=== PATIENT | female | born 1975 | race Caucasian/White ===

== ENCOUNTER 2016-05-06 14:26 | Emergency (ER) | payer OTHER ==
[~2016-05-06] VITALS: Ht 152.4 cm; Wt 95.2 kg
[~2016-05-06 14:26] MED LIST: AMBIEN10 MG PO; BACLOFEN10 MG PO; CEFDINIR300 MG PO; CIPRO500 MG PO; CLEOCIN300 MG PO; CLINDAMYCIN HC300 MG PO; DIFLUCAN150 MG PO; ENDOCET 10-3251 EACH PO; ESKALITH300 M1 PO; FLUTICASONE PRO30 GM TP; IBUPROFEN800 MG PO; LAMICTAL XR200 MG PO; LITHIUM CARBON300 MG; LITHIUM CARBON600 MG PO; LORAZEPAM0.5 MG PO; LORAZEPAM1 MG PO; LYRICA75 MG PO; MORPHINE SULFAT15 MG PO; MOTRIN800 MG PO; NEURONTIN100 MG PO; NORCO 7.5/321 TABLET PO; PEGASYS180 MCG/1 SC; PERCOCET 10/1 TABLE1 PO; PERCOCET 10/1 TABLET PO; PERCOCET 5/31 TABLET PO; PROAIR HFA8.5 GM PO; PROMACTA25 MG PO; QUETIAPINE FUM300 MG; QUETIAPINE FUM300 MG PO; QUETIAPINE FUMA50 MG PO; RIBAPAK PO; RISPERDAL2 MG PO; ROPINIROLE HCL1 MG PO; SEROQUEL200 MG PO; SEROQUEL300 MG PO; SEROQUEL400 MG PO; SEROquel PO; SOMA350 MG PO; Silvadene,SSD,Therma TP; TRAMADOL HCL50 MG PO; ULTRAM50 MG PO; VENTOLIN HFA18 GM IH; VOLTAREN75 MG PO; Vibramycin, Doryx PO; ZOLPIDEM TARTRA10 MG PO; ZYVOX600 MG PO
[2016-05-06 15:26] LABS: HEMATOCRIT 38.4 % (36.0-46.0); MCH 30.7 PG (29.0-34.0); MCHC 35.4 G/DL (30.0-36.0); MCV 86.7 FL (83-99); RBC DIS.WIDTH-CV 15.1 % (11.8-14.6); RBC DIS.WIDTH-SD 47.3 % (39-53); RED BLOOD COUNT 4.43 M/uL (3.80-5.20); WHITE BLOOD COUNT 4.6 K/uL (4.1-10.2)
[2016-05-06 15:34] LABS: CHLORIDE 111 mEq/L (99-109); POTASSIUM 4.1 mEq/L (3.7-5.4); SODIUM 141 mEq/L (136-147)
[2016-05-06 15:37] LABS: GLUCOSE 120 mg/dL (70-99)
[2016-05-06 15:38] LABS: ANION GAP 8 MEQ/L (2-14); TOTAL BILIRUBIN 2.2 mg/dL (0.0-1.0)
[2016-05-06 15:40] LABS: ALKALINE PHOSPHATASE 89 IU/L (3-129); GFR ESTIMATE (CALCULATED) > 59 mL/min/
[2016-05-06 15:41] LABS: UREA NITROGEN (BUN) 9 mg/dL (9-23)
[2016-05-06 15:42] LABS: DIRECT BILIRUBIN 0.9 mg/dL (0.0-0.3)
[2016-05-06 15:50] LABS: QUANTITATIVE HCG < 4.0 MIU/ML
[2016-05-06 15:51] LABS: MEAN PLAT.VOLUME 10.4 uM^3 (9.5-12.4); PLATELET COUNT 41 K/uL (156-360)
[2016-05-06 17:10] LABS: ADD MIUA? YES; BILIRUBIN NEGATIVE; BLOOD NEGATIVE; COLOR AMBER ((YELLOW)); GLUCOSE (STRIP) NEGATIVE; KETONES NEGATIVE; LEUKOCYTES NEGATIVE; NITRITE NEGATIVE; PROTEIN (STRIP) NEGATIVE
[2016-05-06 17:20] LABS: BACTERIA RARE /HPF; EPITHELIAL CELLS 1+ /HPF; MUCUS TRACE /LPF; RED BLOOD CELLS NONE SEEN /HPF (0-5); UCUL ADDED? NO; WHITE BLOOD CELLS 0-5 /HPF (0-5)
[2016-05-06 17:39] LABS: LIPASE 64 U/L (1.0-51.0)
[2016-05-06] MEDS ORDERED: ZOFRAN ODT4 MG PO (20:42)
[2016-05-06 21:51] VITALS: BP 136/79
== END 2016-05-06 22:12 | disposition home or self-care (01) ==
LOC: EME 14:26
DX: R10.31 Right lower quadrant pain (principal); R11.2 Nausea with vomiting, unspecified; B19.20 Unspecified viral hepatitis C without hepatic coma; F17.200 Nicotine dependence, unspecified, uncomplicated
CPT/HCPCS: 74177; 80053; 81003; 82248; 83690; 84702; 85027; 99281; 99285; J1885; J2270; J2405; J7030

== ENCOUNTER 2016-09-16 19:32 | Emergency (ER) | payer OTHER ==
[~2016-09-16] VITALS: Ht 152.4 cm; Wt 95.1 kg
[~2016-09-16 19:32] MED LIST changes: +ZOFRAN ODT4 MG PO
[2016-09-16 19:35] VITALS: BP 115/68
[2016-09-16 19:50] LABS: ADD MIUA? YES; BILIRUBIN NEGATIVE; BLOOD SMALL; COLOR YELLOW ((YELLOW)); GLUCOSE (STRIP) NEGATIVE; KETONES NEGATIVE; LEUKOCYTES LARGE; NITRITE NEGATIVE; PROTEIN (STRIP) 30; SPECIFIC GRAVITY 1.012 (1.000-1.030)
[2016-09-16 20:17] LABS: BACTERIA RARE /HPF; EPITHELIAL CELLS 1+ /HPF; MUCUS TRACE /LPF; UCUL ADDED? NO; WHITE BLOOD CELLS 40-50 /HPF (0-5)
[2016-09-17] MEDS ORDERED: MOTRIN600 MG PO (01:13)
== END 2016-09-16 21:09 | disposition left against medical advice (07) ==
LOC: EME 19:32
DX: R10.9 Unspecified abdominal pain (principal); Z53.21 Procedure and treatment not carried out due to patient leaving prior to being seen by health care provider
CPT/HCPCS: 80053; 81003; 84702; 85027

== ENCOUNTER 2016-09-16 21:24 | Emergency (ER) | payer OTHER ==
[~2016-09-16] VITALS: Ht 152.4 cm; Wt 95.1 kg
[2016-09-16 21:59] LABS: HEMATOCRIT 38.1 % (36.0-46.0); MCH 31.2 PG (29.0-34.0); MCHC 33.6 G/DL (30.0-36.0); MCV 92.9 FL (83-99); RBC DIS.WIDTH-CV 14.1 % (11.8-14.6); RBC DIS.WIDTH-SD 47.8 % (39-53); WHITE BLOOD COUNT 2.8 K/uL (4.1-10.2)
[2016-09-16 22:11] LABS: CHLORIDE 108 mEq/L (99-109); POTASSIUM 3.7 mEq/L (3.7-5.4); SODIUM 137 mEq/L (136-147)
[2016-09-16 22:13] LABS: GLUCOSE 141 mg/dL (70-99)
[2016-09-16 22:14] LABS: ANION GAP 6 MEQ/L (2-14)
[2016-09-16 22:15] LABS: TOTAL BILIRUBIN 1.6 mg/dL (0.0-1.0)
[2016-09-16 22:16] LABS: ALKALINE PHOSPHATASE 92 IU/L (3-129)
[2016-09-16 22:17] LABS: GFR ESTIMATE (CALCULATED) > 59 mL/min/
[2016-09-16 22:18] LABS: UREA NITROGEN (BUN) 5 mg/dL (9-23)
[2016-09-16 22:23] LABS: ADD MIUA? YES; BILIRUBIN NEGATIVE; BLOOD MODERATE; COLOR YELLOW ((YELLOW)); GLUCOSE (STRIP) NEGATIVE; KETONES NEGATIVE; LEUKOCYTES LARGE; NITRITE NEGATIVE; PROTEIN (STRIP) NEGATIVE; SPECIFIC GRAVITY 1.006 (1.000-1.030)
[2016-09-16 22:25] LABS: QUANTITATIVE HCG < 4.0 MIU/ML
[2016-09-16 22:45] LABS: BACTERIA RARE /HPF; EPITHELIAL CELLS 1+ /HPF; MUCUS TRACE /LPF; RED BLOOD CELLS 15-20 /HPF (0-5); UCUL ADDED? YES; WHITE BLOOD CELLS TNTC /HPF (0-5)
[2016-09-16 23:16] LABS: IMM.PLATELET FRACTION 3.6 (1-7); PLATELET COUNT 39 K/uL (156-360)
[2016-09-16 23:18] LABS: PLAT.SUFFICIENCY VERY DECREASED
[2016-09-17] MEDS ORDERED: MOTRIN600 MG PO (01:13)
[2016-09-17 02:03] VITALS: BP 111/61
== END 2016-09-17 02:03 | disposition home or self-care (01) ==
LOC: EME 21:24
DX: R10.9 Unspecified abdominal pain (principal); S39.012A Strain of muscle, fascia and tendon of lower back, initial encounter; R31.9 Hematuria, unspecified; X50.1XXA Overexertion from prolonged static or awkward postures, initial encounter; Y93.89 Activity, other specified; Z87.442 Personal history of urinary calculi; F17.200 Nicotine dependence, unspecified, uncomplicated; B19.20 Unspecified viral hepatitis C without hepatic coma
CPT/HCPCS: 74176; 80053; 81003; 84702; 85027; 87086 GA; 99281; 99284; J1885

== ENCOUNTER 2017-03-19 18:58 | Emergency (ER) | payer OTHER ==
[~2017-03-19] VITALS: Ht 152.4 cm; Wt 103.4 kg
[~2017-03-19 18:58] MED LIST changes: +GAS RELIEF 8080 MG PO; +MOTRIN600 MG PO
[2017-03-19 22:43] LABS: HEMATOCRIT 33.7 % (36.0-46.0); HEMOGLOBIN 11.5 G/DL (11.9-15.5); MCH 30.3 PG (29.0-34.0); MCHC 34.1 G/DL (30.0-36.0); MCV 88.7 FL (83-99); RBC DIS.WIDTH-CV 15.9 % (11.8-14.6); RBC DIS.WIDTH-SD 51.3 % (39-53); WHITE BLOOD COUNT 3.4 K/uL (4.1-10.2)
[2017-03-19 22:56] LABS: CHLORIDE 108 mEq/L (99-109); POTASSIUM 4.1 mEq/L (3.7-5.4); SODIUM 137 mEq/L (136-147)
[2017-03-19 22:58] LABS: GLUCOSE 107 mg/dL (70-99)
[2017-03-19 23:01] LABS: CREATININE 0.6 mg/dL (0.6-1.3); GFR ESTIMATE (CALCULATED) > 59 mL/min/
[2017-03-19 23:02] LABS: UREA NITROGEN (BUN) 8 mg/dL (9-23)
[2017-03-19 23:04] LABS: LIPASE 60 U/L (1.0-51.0)
[2017-03-19 23:05] LABS: APPEARANCE CLOUDY ((CLEAR)); BILIRUBIN NEGATIVE; BLOOD LARGE; COLOR AMBER ((YELLOW)); GLUCOSE (STRIP) NEGATIVE; KETONES NEGATIVE; LEUKOCYTES MODERATE; NITRITE NEGATIVE; PROTEIN (STRIP) 30; SPECIFIC GRAVITY 1.026 (1.000-1.030)
[2017-03-19 23:29] LABS: BACTERIA 1+ /HPF; EPITHELIAL CELLS 1+ /HPF; MUCUS NONE SEEN /LPF; RED BLOOD CELLS TNTC /HPF (0-5); UCUL ADDED? YES; WHITE BLOOD CELLS 15-20 /HPF (0-5)
[2017-03-19 23:43] VITALS: BP 110/67
[2017-03-20 00:05] LABS: IMM.PLATELET FRACTION 2.3 (1-7); PLAT.SUFFICIENCY VERY DECREASED; PLATELET COUNT 35 K/uL (156-360)
== END 2017-03-19 23:44 | disposition home or self-care (01) ==
LOC: EME 18:58
PROVIDERS: Nurse Practitioner Family
DX: S20.211A Contusion of right front wall of thorax, initial encounter (principal); W17.89XA Other fall from one level to another, initial encounter; J45.909 Unspecified asthma, uncomplicated; F17.200 Nicotine dependence, unspecified, uncomplicated; F32.9 Major depressive disorder, single episode, unspecified; F41.9 Anxiety disorder, unspecified; K21.9 Gastro-esophageal reflux disease without esophagitis; B19.20 Unspecified viral hepatitis C without hepatic coma; K74.60 Unspecified cirrhosis of liver
CPT/HCPCS: 71101; 80048; 81003; 83690; 85027; 87086; 99281; 99284

== ENCOUNTER 2017-05-21 16:21 | Inpatient (IN) | payer OTHER ==
[~2017-05-21] VITALS: Ht 152.4 cm; Wt 103.8 kg
[2017-05-21 17:49] LABS: HEMATOCRIT 33.2 % (36.0-46.0); HEMOGLOBIN 11.2 G/DL (11.9-15.5); MCH 29.9 PG (29.0-34.0); MCHC 33.7 G/DL (30.0-36.0); MCV 88.5 FL (83-99); RBC DIS.WIDTH-CV 16.6 % (11.8-14.6); RBC DIS.WIDTH-SD 53.1 % (39-53); RED BLOOD COUNT 3.75 M/uL (3.80-5.20); WHITE BLOOD COUNT 4.8 K/uL (4.1-10.2)
[2017-05-21 18:14] LABS: ALBUMIN 2.9 g/dL (3.2-4.8); CHLORIDE 100 mEq/L (99-109); POTASSIUM 4.1 mEq/L (3.7-5.4); SODIUM 131 mEq/L (136-147)
[2017-05-21 18:17] LABS: GLUCOSE 150 mg/dL (70-99); TOTAL PROTEIN 5.8 g/dL (6.4-8.3)
[2017-05-21 18:18] LABS: TOTAL BILIRUBIN 3.7 mg/dL (0.0-1.0)
[2017-05-21 18:20] LABS: ALKALINE PHOSPHATASE 107 IU/L (3-129); CREATININE 1.1 mg/dL (0.6-1.3); GFR ESTIMATE (CALCULATED) 58 mL/min/; SERUM ETHYL ALCOHOL < 10 mg/dL
[2017-05-21 18:21] LABS: UREA NITROGEN (BUN) 18 mg/dL (9-23)
[2017-05-21 18:22] LABS: AST (GOT) 68 IU/L (2-34)
[2017-05-21 18:23] LABS: ALT (GPT) 34 IU/L (3-49); CREATINE KINASE 537 IU/L (1-294)
[2017-05-21 18:29] LABS: TROP-I INTERPRETATION NEGATIVE; TROPONIN-I 0.08 ng/mL (0.0-0.30)
[2017-05-21 18:43] LABS: IMM.PLATELET FRACTION 5.7 (1-7); PLAT.SUFFICIENCY VERY DECREASED; PLATELET COUNT 20 K/uL (156-360)
[2017-05-21 19:10] LABS: BASE EXCESS -5.1 mEq/L (-3 to +3); BICARBONATE 21.6 mEq/L (22-26); CARBOXY HGB 3.6 % (0-5); COMMENTS - BLOOD GASES C+; DEVICE NC; METHEMOGLOBIN 0.9 % (0-1.5); O2 FLOW 6 L/MIN; PCO2 46 mm Hg (35-45); PO2 62 mm Hg (80-100); SITE RBRACHIAL; TOTAL RESP RATE 20 resp/min
[2017-05-21 19:11] LABS: pH 7.28 (7.35-7.45)
[2017-05-21 19:15] LABS: APPEARANCE CLOUDY ((CLEAR)); BILIRUBIN NEGATIVE; BLOOD SMALL; COLOR AMBER ((YELLOW)); GLUCOSE (STRIP) 50; KETONES NEGATIVE; LEUKOCYTES SMALL; NITRITE NEGATIVE; PROTEIN (STRIP) 100; SPECIFIC GRAVITY 1.012 (1.000-1.030)
[2017-05-21 19:32] LABS: AMPHETAMINE NEGATIVE (500 ng/mL); BARBITURATES NEGATIVE (200 ng/mL); BENZODIAZEPINES NEGATIVE (150 ng/mL); BUPRENORPHINE NEGATIVE (10 ng/mL); COCAINE PRESUMPTIVE POSITIVE (150 ng/mL); METHADONE NEGATIVE (200 ng/mL); METHAMPHETAMINE NEGATIVE (500 ng/mL); OPIATES (MORPHINE) PRESUMPTIVE POSITIVE (100 ng/mL); OXYCODONE NEGATIVE (100 ng/mL); PHENCYCLIDINE NEGATIVE (25 ng/mL); PROPOXYPHENE NEGATIVE (300 ng/mL); THC CANNABINOIDS NEGATIVE (50 ng/mL); TRICYCLIC ANTIDEPRESSANTS PRESUMPTIVE POSITIVE (300 ng/mL)
[2017-05-21 19:35] LABS: BACTERIA RARE /HPF; EPITHELIAL CELLS 3+ /HPF; FINE GRANULAR CASTS 0-5 /LPF; MUCUS NONE SEEN /LPF; RED BLOOD CELLS 0-5 /HPF (0-5); UCUL ADDED? NO; WHITE BLOOD CELLS 0-5 /HPF (0-5)
[2017-05-21 19:36] LABS: AMORPHOUS URATES CRYSTALS 1+; HYALINE CASTS 0-5 /LPF
[2017-05-21] MEDS ORDERED: ZOLPIDEM TARTRAT5 MG PO (20:52)
[2017-05-21] MEDS ORDERED: FLUOXETINE HCL10 MG PO (21:02)
[2017-05-21] MEDS ORDERED: QUETIAPINE FUM400 MG PO (21:02)
[2017-05-21] MEDS ORDERED: FLUOXETINE HCL40 MG PO (21:03)
[2017-05-21] MEDS ORDERED: PROAIR HFA8.5 GM IH (21:06)
[2017-05-22 01:00] VITALS: BP 105/59
[2017-05-22 04:00] VITALS: BP 100/63
[2017-05-22 05:43] LABS: HEMATOCRIT 31.2 % (36.0-46.0); HEMOGLOBIN 10.5 G/DL (11.9-15.5); INTER. NORMALIZED RATIO 1.6; MCH 29.8 PG (29.0-34.0); MCHC 33.7 G/DL (30.0-36.0); MCV 88.6 FL (83-99); RBC DIS.WIDTH-CV 16.9 % (11.8-14.6); RBC DIS.WIDTH-SD 53.1 % (39-53); RED BLOOD COUNT 3.52 M/uL (3.80-5.20); WHITE BLOOD COUNT 5.8 K/uL (4.1-10.2)
[2017-05-22 05:46] LABS: PTT 33.8 SEC (25-37)
[2017-05-22 06:02] LABS: CHLORIDE 105 MEQ/L (99-109); CREATININE 0.7 MG/DL (0.6-1.3); GFR ESTIMATE (CALCULATED) > 59 mL/min/; SODIUM 136 MEQ/L (136-147); UREA NITROGEN (BUN) 18 mg/dL (9-23)
[2017-05-22 06:04] LABS: GLUCOSE 101 mg/dL (70-99)
[2017-05-22 06:22] LABS: IMM.PLATELET FRACTION 3.4 (1-7); PLATELET COUNT 26 K/uL (156-360)
[2017-05-22 08:00] VITALS: BP 121/62
[2017-05-22 08:28] LABS: THYROTROPIN (TSH) 0.61 MIU/L (0.4-5.5)
[2017-05-22 12:00] VITALS: BP 125/73
[2017-05-22 16:00] VITALS: BP 121/74
[2017-05-22 20:00] VITALS: BP 132/72
[2017-05-23] VITALS (14 sets, daily range): BP systolic 109–128; BP diastolic 54–81
[2017-05-23 05:34] LABS: HEMATOCRIT 31.8 % (36.0-46.0); HEMOGLOBIN 10.7 G/DL (11.9-15.5); MCH 30.1 PG (29.0-34.0); MCHC 33.6 G/DL (30.0-36.0); MCV 89.3 FL (83-99); NRBC (%) 0.2 /100 WBC (0-0); RBC DIS.WIDTH-CV 17.7 % (11.8-14.6); RBC DIS.WIDTH-SD 55.3 % (39-53); RED BLOOD COUNT 3.56 M/uL (3.80-5.20); WHITE BLOOD COUNT 10.2 K/uL (4.1-10.2)
[2017-05-23 05:59] LABS: ALBUMIN 2.4 G/DL (3.2-4.8); ALKALINE PHOSPHATASE 74 IU/L (3-129); ALT (GPT) 25 IU/L (3-49); AST (GOT) 50 IU/L (2-34); CHLORIDE 107 MEQ/L (99-109); CREATININE 0.6 MG/DL (0.6-1.3); GFR ESTIMATE (CALCULATED) > 59 mL/min/; GLUCOSE 122 mg/dL (70-99); POTASSIUM 3.5 MEQ/L (3.7-5.4); SODIUM 137 MEQ/L (136-147); TOTAL BILIRUBIN 3.6 MG/DL (0.0-1.0); TOTAL PROTEIN 5.1 G/DL (6.4-8.3); UREA NITROGEN (BUN) 12 mg/dL (9-23)
[2017-05-23 06:03] LABS: IMM.PLATELET FRACTION 1.8 (1-7); PLAT.SUFFICIENCY VERY DECREASED; PLATELET COUNT 38 K/uL (156-360)
[2017-05-23 08:21] LABS: FOLIC ACID (FOLATE) 9.1 NG/ML (5.0-22.0)
[2017-05-23 10:03] LABS: BASE EXCESS 0.4 mEq/L (-3 to +3); BICARBONATE 24.6 mEq/L (22-26); CARBOXY HGB 2.8 % (0-5); COMMENTS - BLOOD GASES A+C+; DEVICE HHFNC; FI02 70 %; METHEMOGLOBIN 1.5 % (0-1.5); O2 FLOW 50 L/MIN; PCO2 37 mm Hg (35-45); PO2 57 mm Hg (80-100); SITE RR; TOTAL RESP RATE 40 resp/min; pH 7.43 (7.35-7.45)
[2017-05-24] VITALS (9 sets, daily range): BP systolic 109–133; BP diastolic 56–89
[2017-05-24 05:29] LABS: CHLORIDE 102 MEQ/L (99-109); CREATININE 0.6 MG/DL (0.6-1.3); GFR ESTIMATE (CALCULATED) > 59 mL/min/; GLUCOSE 169 mg/dL (70-99); POTASSIUM 3.1 MEQ/L (3.7-5.4); SODIUM 137 MEQ/L (136-147); UREA NITROGEN (BUN) 13 mg/dL (9-23)
[2017-05-24 05:31] LABS: HEMATOCRIT 31.8 % (36.0-46.0); HEMOGLOBIN 10.5 G/DL (11.9-15.5); MCH 29.3 PG (29.0-34.0); MCV 88.8 FL (83-99); RBC DIS.WIDTH-CV 17.5 % (11.8-14.6); RBC DIS.WIDTH-SD 54.9 % (39-53); RED BLOOD COUNT 3.58 M/uL (3.80-5.20); WHITE BLOOD COUNT 7.2 K/uL (4.1-10.2)
[2017-05-24 05:40] LABS: IMM.PLATELET FRACTION 2.5 (1-7)
[2017-05-24 05:44] LABS: PLATELET COUNT 26 K/uL (156-360)
[2017-05-25] VITALS (8 sets, daily range): BP systolic 112–130; BP diastolic 59–85
[2017-05-25 05:58] LABS: HEMATOCRIT 32.1 % (36.0-46.0); HEMOGLOBIN 10.5 G/DL (11.9-15.5); MCH 29.6 PG (29.0-34.0); MCHC 32.7 G/DL (30.0-36.0); MCV 90.4 FL (83-99); RBC DIS.WIDTH-CV 17.3 % (11.8-14.6); RBC DIS.WIDTH-SD 56.4 % (39-53); RED BLOOD COUNT 3.55 M/uL (3.80-5.20); WHITE BLOOD COUNT 5.3 K/uL (4.1-10.2)
[2017-05-25 06:22] LABS: CHLORIDE 103 MEQ/L (99-109); CREATININE 0.6 MG/DL (0.6-1.3); GFR ESTIMATE (CALCULATED) > 59 mL/min/; GLUCOSE 167 mg/dL (70-99); SODIUM 139 MEQ/L (136-147); UREA NITROGEN (BUN) 16 mg/dL (9-23)
[2017-05-25 06:42] LABS: IMM.PLATELET FRACTION 2.1 (1-7); PLATELET COUNT 31 K/uL (156-360)
[2017-05-26] VITALS (9 sets, daily range): BP systolic 113–138; BP diastolic 60–82
[2017-05-26 05:04] LABS: CHLORIDE 101 mEq/L (99-109); POTASSIUM 3.8 mEq/L (3.7-5.4); SODIUM 136 mEq/L (136-147)
[2017-05-26 05:05] LABS: GLUCOSE 175 mg/dL (70-99)
[2017-05-26 05:09] LABS: CREATININE 0.7 mg/dL (0.6-1.3); GFR ESTIMATE (CALCULATED) > 59 mL/min/
[2017-05-26 05:10] LABS: UREA NITROGEN (BUN) 19 mg/dL (9-23)
[2017-05-27 03:00] VITALS: BP 106/56
[2017-05-27 06:22] LABS: ALBUMIN 2.3 G/DL (3.2-4.8); ALKALINE PHOSPHATASE 82 IU/L (3-129); AST (GOT) 55 IU/L (2-34); CHLORIDE 99 MEQ/L (99-109); CREATININE 0.7 MG/DL (0.6-1.3); GFR ESTIMATE (CALCULATED) > 59 mL/min/; GLUCOSE 186 mg/dL (70-99); POTASSIUM 3.9 MEQ/L (3.7-5.4); SODIUM 134 MEQ/L (136-147); UREA NITROGEN (BUN) 24 mg/dL (9-23)
[2017-05-27 06:24] LABS: ALT (GPT) 57 IU/L (3-49); TOTAL BILIRUBIN 1.8 MG/DL (0.0-1.0)
[2017-05-27 08:51] VITALS: BP 137/68
[2017-05-27 12:16] VITALS: BP 96/52
[2017-05-27 15:55] VITALS: BP 114/61
[2017-05-27 20:30] VITALS: BP 116/62
[2017-05-28 00:06] VITALS: BP 139/63
[2017-05-28 04:31] VITALS: BP 108/57
[2017-05-28 06:27] LABS: HEMATOCRIT 32.7 % (36.0-46.0); HEMOGLOBIN 10.5 G/DL (11.9-15.5); MCH 28.8 PG (29.0-34.0); MCHC 32.1 G/DL (30.0-36.0); MCV 89.8 FL (83-99); RBC DIS.WIDTH-CV 16.4 % (11.8-14.6); RBC DIS.WIDTH-SD 53.3 % (39-53); RED BLOOD COUNT 3.64 M/uL (3.80-5.20); WHITE BLOOD COUNT 5.2 K/uL (4.1-10.2)
[2017-05-28 06:54] LABS: PLAT.SUFFICIENCY DECREASED; PLATELET COUNT 35 K/uL (156-360)
[2017-05-28 08:05] VITALS: BP 127/72
[2017-05-28 14:18] VITALS: BP 108/65
[2017-05-28 20:10] VITALS: BP 114/60
[2017-05-28 23:07] VITALS: BP 115/64
[2017-05-29 04:08] VITALS: BP 97/55
[2017-05-29 06:09] LABS: ALBUMIN 2.1 G/DL (3.2-4.8); ALKALINE PHOSPHATASE 81 IU/L (3-129); ALT (GPT) 52 IU/L (3-49); AST (GOT) 36 IU/L (2-34); CHLORIDE 100 MEQ/L (99-109); CREATININE 0.6 MG/DL (0.6-1.3); GFR ESTIMATE (CALCULATED) > 59 mL/min/; GLUCOSE 241 mg/dL (70-99); POTASSIUM 3.7 MEQ/L (3.7-5.4); SODIUM 136 MEQ/L (136-147); TOTAL BILIRUBIN 1.8 MG/DL (0.0-1.0); TOTAL PROTEIN 4.7 G/DL (6.4-8.3); UREA NITROGEN (BUN) 16 mg/dL (9-23)
[2017-05-29 09:35] VITALS: BP 94/52
[2017-05-29 12:52] VITALS: BP 119/55
[2017-05-29 17:00] VITALS: BP 118/61
[2017-05-29 21:35] VITALS: BP 101/53
[2017-05-30 00:10] VITALS: BP 118/58
[2017-05-30 04:45] VITALS: BP 114/55
[2017-05-30 04:50] LABS: BASOPHIL (%) 0 % (0-1); EOSINOPHIL (%) 1.2 % (0-5); EOSINOPHIL COUNT 0.1 K/uL (0-0.3); HEMATOCRIT 31.4 % (36.0-46.0); HEMOGLOBIN 10.2 G/DL (11.9-15.5); IMMATURE GRANULOCYTE (%) 1.2 % (0.0-0.7); LYMPHOCYTE (%) 15.8 % (15-42); LYMPHOCYTE COUNT 0.7 K/uL (1.0-2.8); MCH 29.1 PG (29.0-34.0); MCHC 32.5 G/DL (30.0-36.0); MCV 89.5 FL (83-99); MONOCYTE (%) 7.3 % (3-12); MONOCYTE COUNT 0.3 K/uL (0-0.8); NEUTROPHIL (%) 74.5 % (45-76); NEUTROPHIL COUNT 3.1 K/uL (1.8-6.4); RBC DIS.WIDTH-CV 16.4 % (11.8-14.6); RED BLOOD COUNT 3.51 M/uL (3.80-5.20); WHITE BLOOD COUNT 4.1 K/uL (4.1-10.2)
[2017-05-30 05:26] LABS: CHLORIDE 101 MEQ/L (99-109); CREATININE 0.5 MG/DL (0.6-1.3); GFR ESTIMATE (CALCULATED) > 59 mL/min/; GLUCOSE 170 mg/dL (70-99); POTASSIUM 3.2 MEQ/L (3.7-5.4); SODIUM 139 MEQ/L (136-147); UREA NITROGEN (BUN) 12 mg/dL (9-23)
[2017-05-30 05:36] LABS: PLATELET CLUMPS PRESENT - PLATELET COUNTS APPEARS DECREASED
[2017-05-30 05:41] LABS: PLATELET COUNT UNABLE TO REPORT K/uL (156-360)
[2017-05-30 08:11] VITALS: BP 103/55
[2017-05-30 11:26] VITALS: BP 107/64
== END 2017-05-30 15:53 | disposition left against medical advice (07) | DRG 441 ==
LOC: EME 16:21 → EDOF 21:53 → 4EAST 21:53 → 4WEST 21:53 → ENRESERV 21:56 → 4WEST 05-22 00:13 → CANRESERV 05-22 19:25 → ENRESERV 05-22 19:25 → 4WEST 05-23 18:10 → CANRESERV 05-26 15:08 → ENRESERV 05-26 15:08 → 4EAST 05-26 21:41 → ENRESERV 05-30 11:18 → 4EAST 05-30 15:53
PROVIDERS: Emergency Medicine; Hospitalist; Internal Medicine; Internal Medicine Critical Care Medicine; Internal Medicine Hematology & Oncology; Internal Medicine Pulmonary Disease
DX: K72.00 Acute and subacute hepatic failure without coma (principal); J96.01 Acute respiratory failure with hypoxia; J69.0 Pneumonitis due to inhalation of food and vomit; K74.60 Unspecified cirrhosis of liver; K70.10 Alcoholic hepatitis without ascites; J44.0 Chronic obstructive pulmonary disease with (acute) lower respiratory infection; W19.XXXA Unspecified fall, initial encounter; Y92.009 Unspecified place in unspecified non-institutional (private) residence as the place of occurrence of the external cause; F17.210 Nicotine dependence, cigarettes, uncomplicated; E87.1 Hypo-osmolality and hyponatremia; R73.9 Hyperglycemia, unspecified; E66.9 Obesity, unspecified; E63.9 Nutritional deficiency, unspecified; F14.90 Cocaine use, unspecified, uncomplicated; D69.59 Other secondary thrombocytopenia; D68.59 Other primary thrombophilia; J96.02 Acute respiratory failure with hypercapnia; B18.2 Chronic viral hepatitis C; F60.9 Personality disorder, unspecified; K76.6 Portal hypertension; F32.9 Major depressive disorder, single episode, unspecified; F41.9 Anxiety disorder, unspecified; Z68.41 Body mass index [BMI] 40.0-44.9, adult; D73.1 Hypersplenism; K21.9 Gastro-esophageal reflux disease without esophagitis; T40.601A Poisoning by unspecified narcotics, accidental (unintentional), initial encounter; G47.00 Insomnia, unspecified; K64.9 Unspecified hemorrhoids; Z90.49 Acquired absence of other specified parts of digestive tract; Z91.19 Patient's noncompliance with other medical treatment and regimen; Z83.3 Family history of diabetes mellitus; Z82.49 Family history of ischemic heart disease and other diseases of the circulatory system
CPT/HCPCS: 36600; 70450; 71045; 71046; 71260; 76705; 80048; 80053; 80178; 81003; 82140; 82550; 82607; 82746; 82803; 82945; 82948; 83605; 83986 90; 84145 90; 84157; 84443; 84484; 84999; 85025; 85027; 85610; 85730; 87040; 87070; 87077; 87086; 87186; 87205; 87449; 87502; 87641; 89051; 93005; 93306; 94010; 94640; 94640 76; 94760; 94799; 99202; 99281; 99285; G0480; J0456; J0692; J0696; J1940; J2310; J2405; J2930; J3370; J7030; J7512

== ENCOUNTER → 2017-06-18 | Outpatient (CLI) | payer OTHER ==
[~2017-06-18] MED LIST changes: +FLUOXETINE HCL10 MG PO; +FLUOXETINE HCL40 MG PO; +PROAIR HFA8.5 GM IH; +QUETIAPINE FUM400 MG PO; +ZOLPIDEM TARTRAT5 MG PO
== END | disposition home or self-care (01) ==
LOC: RAD 12:53
DX: R18.8 Other ascites (principal)
CPT/HCPCS: 76705

== ENCOUNTER → 2017-06-20 | Outpatient (CLI) | payer OTHER | END | disposition home or self-care (01) | LOC: RAD 12:54 | DX: R18.8 Other ascites (principal) | CPT/HCPCS: 76705 ==

== ENCOUNTER 2017-06-21 17:45 | Emergency (ER) | payer OTHER ==
[~2017-06-21] VITALS: Ht 152.4 cm; Wt 121.5 kg
[2017-06-21 19:48] LABS: HEMATOCRIT 37.3 % (36.0-46.0); MCH 30.1 PG (29.0-34.0); MCHC 32.2 G/DL (30.0-36.0); RBC DIS.WIDTH-CV 16.5 % (11.8-14.6); RBC DIS.WIDTH-SD 56.9 % (39-53); RED BLOOD COUNT 3.99 M/uL (3.80-5.20)
[2017-06-21 19:57] LABS: ALBUMIN 2.6 g/dL (3.2-4.8); CHLORIDE 111 mEq/L (99-109); POTASSIUM 3.7 mEq/L (3.7-5.4); SODIUM 141 mEq/L (136-147)
[2017-06-21 19:59] LABS: GLUCOSE 160 mg/dL (70-99); TOTAL PROTEIN 6.2 g/dL (6.4-8.3)
[2017-06-21 20:01] LABS: TOTAL BILIRUBIN 1.9 mg/dL (0.0-1.0)
[2017-06-21 20:03] LABS: ALKALINE PHOSPHATASE 134 IU/L (3-129); CREATININE 0.7 mg/dL (0.6-1.3); GFR ESTIMATE (CALCULATED) > 59 mL/min/
[2017-06-21 20:04] LABS: UREA NITROGEN (BUN) 5 mg/dL (9-23)
[2017-06-21 20:05] LABS: AST (GOT) 33 IU/L (2-34)
[2017-06-21 20:06] LABS: ALT (GPT) 22 IU/L (3-49); LIPASE 17 U/L (1.0-51.0)
[2017-06-21 20:13] LABS: TROP-I INTERPRETATION NEGATIVE; TROPONIN-I < 0.01 ng/mL (0.0-0.30)
[2017-06-21 20:24] LABS: HEMATOLOGY COMMENT 1 SN; PLAT.SUFFICIENCY VERY DECREASED
[2017-06-21 21:03] LABS: IMM.PLATELET FRACTION 1.6 (1-7); MCV 93.5 FL (83-99); PLATELET COUNT 37 K/uL (156-360)
[2017-06-22 00:21] VITALS: BP 153/83
== END 2017-06-22 00:22 | disposition home or self-care (01) ==
LOC: EME 17:45
PROVIDERS: Emergency Medicine
DX: R06.02 Shortness of breath (principal); K74.60 Unspecified cirrhosis of liver; R18.8 Other ascites; R60.0 Localized edema; R63.5 Abnormal weight gain; J45.909 Unspecified asthma, uncomplicated; Z87.01 Personal history of pneumonia (recurrent); Z90.49 Acquired absence of other specified parts of digestive tract; F17.200 Nicotine dependence, unspecified, uncomplicated; Z68.43 Body mass index [BMI] 50.0-59.9, adult
CPT/HCPCS: 71046; 71275; 80048; 80076; 83690; 84484; 85027; 85379; 93005; 99281; 99285

== ENCOUNTER 2017-07-05 15:59 | Inpatient (IN) | payer OTHER ==
[~2017-07-05] VITALS: Ht 160 cm; Wt 96.7 kg
[2017-07-05 17:05] LABS: APPEARANCE SL.HAZY ((CLEAR)); BILIRUBIN NEGATIVE; BLOOD MODERATE; COLOR YELLOW ((YELLOW)); GLUCOSE (STRIP) NEGATIVE; KETONES NEGATIVE; LEUKOCYTES MODERATE; NITRITE NEGATIVE; PROTEIN (STRIP) NEGATIVE; SPECIFIC GRAVITY 1.016 (1.000-1.030)
[2017-07-05 17:16] LABS: BACTERIA RARE /HPF; EPITHELIAL CELLS 2+ /HPF; MUCUS TRACE /LPF; UCUL ADDED? YES
[2017-07-05 17:55] LABS: ALBUMIN 2.7 g/dL (3.2-4.8); CHLORIDE 110 mEq/L (99-109)
[2017-07-05 17:56] LABS: SODIUM 138 mEq/L (136-147)
[2017-07-05 17:58] LABS: GLUCOSE 105 mg/dL (70-99); TOTAL PROTEIN 6.2 g/dL (6.4-8.3)
[2017-07-05 18:01] LABS: ALKALINE PHOSPHATASE 103 IU/L (3-129)
[2017-07-05 18:02] LABS: CREATININE 0.6 mg/dL (0.6-1.3); GFR ESTIMATE (CALCULATED) > 59 mL/min/
[2017-07-05 18:03] LABS: AST (GOT) 29 IU/L (2-34); DIRECT BILIRUBIN 0.9 mg/dL (0.0-0.3); UREA NITROGEN (BUN) 6 mg/dL (9-23)
[2017-07-05 18:04] LABS: ALT (GPT) 16 IU/L (3-49)
[2017-07-05 18:08] LABS: HEMATOCRIT 33.3 % (36.0-46.0); HEMOGLOBIN 11.2 G/DL (11.9-15.5); MCH 29.4 PG (29.0-34.0); MCHC 33.6 G/DL (30.0-36.0); RBC DIS.WIDTH-CV 15.4 % (11.8-14.6); RED BLOOD COUNT 3.81 M/uL (3.80-5.20); WHITE BLOOD COUNT 2.8 K/uL (4.1-10.2)
[2017-07-05 18:11] LABS: QUANTITATIVE HCG < 4.0 MIU/ML
[2017-07-05 18:18] LABS: MCV 87.4 FL (83-99)
[2017-07-05 18:59] LABS: BASOPHIL (%) 0.4 % (0-1); EOSINOPHIL (%) 0.7 % (0-5); IMM.PLATELET FRACTION 2.4 (1-7); IMMATURE GRANULOCYTE (%) 0.4 % (0.0-0.7); LYMPHOCYTE (%) 33.5 % (15-42); LYMPHOCYTE COUNT 0.9 K/uL (1.0-2.8); MONOCYTE (%) 7.9 % (3-12); MONOCYTE COUNT 0.2 K/uL (0-0.8); NEUTROPHIL (%) 57.1 % (45-76); NEUTROPHIL COUNT 1.6 K/uL (1.8-6.4); PLAT.SUFFICIENCY DECREASED; PLATELET COUNT 39 K/uL (156-360)
[2017-07-05] MEDS ORDERED: LASIX40 MG PO (19:35)
[2017-07-05 19:49] LABS: SERUM ETHYL ALCOHOL < 10 mg/dL
[2017-07-05 20:47] LABS: AMPHETAMINE NEGATIVE (500 ng/mL); BENZODIAZEPINES NEGATIVE (150 ng/mL); COCAINE NEGATIVE (150 ng/mL); METHAMPHETAMINE NEGATIVE (500 ng/mL); OPIATES (MORPHINE) NEGATIVE (100 ng/mL); PHENCYCLIDINE NEGATIVE (25 ng/mL); THC CANNABINOIDS PRESUMPTIVE POSITIVE (50 ng/mL)
[2017-07-05 20:48] LABS: BARBITURATES NEGATIVE (200 ng/mL); BUPRENORPHINE NEGATIVE (10 ng/mL); METHADONE NEGATIVE (200 ng/mL); OXYCODONE NEGATIVE (100 ng/mL); PROPOXYPHENE NEGATIVE (300 ng/mL); TRICYCLIC ANTIDEPRESSANTS PRESUMPTIVE POSITIVE (300 ng/mL)
[2017-07-05 23:30] VITALS: BP 107/57
[2017-07-06 06:27] LABS: HEMATOCRIT 32.5 % (36.0-46.0); HEMOGLOBIN 10.8 G/DL (11.9-15.5); MCH 29.3 PG (29.0-34.0); MCHC 33.2 G/DL (30.0-36.0); MCV 88.1 FL (83-99); RBC DIS.WIDTH-CV 15.3 % (11.8-14.6); RBC DIS.WIDTH-SD 49.3 % (39-53); RED BLOOD COUNT 3.69 M/uL (3.80-5.20); WHITE BLOOD COUNT 2.6 K/uL (4.1-10.2)
[2017-07-06 06:50] LABS: ALBUMIN 2.5 G/DL (3.2-4.8); ALKALINE PHOSPHATASE 82 IU/L (3-129); ALT (GPT) 12 IU/L (3-49); AST (GOT) 23 IU/L (2-34); CHLORIDE 111 MEQ/L (99-109); CREATININE 0.5 MG/DL (0.6-1.3); GFR ESTIMATE (CALCULATED) > 59 mL/min/; GLUCOSE 91 mg/dL (70-99); INTER. NORMALIZED RATIO 1.5; POTASSIUM 3.7 MEQ/L (3.7-5.4); SODIUM 137 MEQ/L (136-147); TOTAL BILIRUBIN 2.1 MG/DL (0.0-1.0); TOTAL PROTEIN 5.6 G/DL (6.4-8.3); UREA NITROGEN (BUN) 5 mg/dL (9-23)
[2017-07-06 07:00] VITALS: BP 106/64
[2017-07-06 07:01] LABS: IMM.PLATELET FRACTION 1.4 (1-7); PLAT.SUFFICIENCY DECREASED; PLATELET COUNT 41 K/uL (156-360)
[2017-07-06 09:56] LABS: MAGNESIUM 1.5 mg/dl (1.3-2.7)
[2017-07-06 15:00] VITALS: BP 113/69
[2017-07-06 19:43] LABS: APPEARANCE SL.HAZY ((CLEAR)); BILIRUBIN NEGATIVE; BLOOD SMALL; GLUCOSE (STRIP) NEGATIVE; KETONES NEGATIVE; LEUKOCYTES MODERATE; NITRITE NEGATIVE; PROTEIN (STRIP) 30; SPECIFIC GRAVITY 1.024 (1.000-1.030); UROBILINOGEN 0.2 MG/DL (0.2-1.0)
[2017-07-06 19:51] LABS: BACTERIA RARE /HPF; EPITHELIAL CELLS 2+ /HPF; MUCUS TRACE /LPF; UCUL ADDED? YES
[2017-07-06 19:52] LABS: COLOR DK YELLOW ((YELLOW))
[2017-07-06 23:01] VITALS: BP 125/78
[2017-07-07 05:37] LABS: BASOPHIL (%) 0.2 % (0-1); EOSINOPHIL (%) 0.9 % (0-5); HEMATOCRIT 34.8 % (36.0-46.0); HEMOGLOBIN 11.4 G/DL (11.9-15.5); IMMATURE GRANULOCYTE (%) 0.2 % (0.0-0.7); LYMPHOCYTE (%) 31.3 % (15-42); LYMPHOCYTE COUNT 1.3 K/uL (1.0-2.8); MCH 28.2 PG (29.0-34.0); MCHC 32.8 G/DL (30.0-36.0); MCV 86.1 FL (83-99); MONOCYTE COUNT 0.3 K/uL (0-0.8); NEUTROPHIL (%) 59.4 % (45-76); NEUTROPHIL COUNT 2.5 K/uL (1.8-6.4); PLATELET COUNT 52 K/uL (156-360); RBC DIS.WIDTH-CV 15.4 % (11.8-14.6); RBC DIS.WIDTH-SD 49.1 % (39-53); RED BLOOD COUNT 4.04 M/uL (3.80-5.20); WHITE BLOOD COUNT 4.3 K/uL (4.1-10.2)
[2017-07-07 06:04] LABS: ALBUMIN 2.8 G/DL (3.2-4.8); ALKALINE PHOSPHATASE 80 IU/L (3-129); ALT (GPT) 12 IU/L (3-49); AST (GOT) 23 IU/L (2-34); CHLORIDE 107 MEQ/L (99-109); CREATININE 0.7 MG/DL (0.6-1.3); GFR ESTIMATE (CALCULATED) > 59 mL/min/; POTASSIUM 3.5 MEQ/L (3.7-5.4); SODIUM 135 MEQ/L (136-147); TOTAL PROTEIN 6.1 G/DL (6.4-8.3); UREA NITROGEN (BUN) 7 mg/dL (9-23)
[2017-07-07 06:06] LABS: GLUCOSE 116 mg/dL (70-99); TOTAL BILIRUBIN 2.7 MG/DL (0.0-1.0)
[2017-07-07 07:17] VITALS: BP 107/63; BP 112/56
[2017-07-07 10:08] VITALS: BP 100/56
[2017-07-07 15:46] VITALS: BP 131/71
[2017-07-08 07:14] VITALS: BP 99/67
[2017-07-08] MEDS ORDERED: XIFAXAN550 MG PO (11:38)
== END 2017-07-08 13:01 | disposition home or self-care (01) | DRG 442 ==
LOC: EME 15:59 → EDOF 20:56 → 5EAST 20:56 → ENRESERV 21:02 → 5EAST 22:28
PROVIDERS: Hospitalist; Nurse Practitioner Family; Physician Assistant
DX: K72.00 Acute and subacute hepatic failure without coma (principal); K74.60 Unspecified cirrhosis of liver; B18.2 Chronic viral hepatitis C; F31.9 Bipolar disorder, unspecified; J44.9 Chronic obstructive pulmonary disease, unspecified; Z59.0 Homelessness; Z91.19 Patient's noncompliance with other medical treatment and regimen; Z87.01 Personal history of pneumonia (recurrent); E66.9 Obesity, unspecified; Z68.37 Body mass index [BMI] 37.0-37.9, adult; D61.818 Other pancytopenia; K76.6 Portal hypertension; D68.9 Coagulation defect, unspecified; F12.90 Cannabis use, unspecified, uncomplicated; F17.200 Nicotine dependence, unspecified, uncomplicated; Z83.3 Family history of diabetes mellitus; Z82.49 Family history of ischemic heart disease and other diseases of the circulatory system
CPT/HCPCS: 70450; 71046; 80053; 81003; 82140; 82248; 83735; 84702; 84999; 85025; 85027; 85610; 87077; 87086; 87186; 99202; 99281; 99285; G0480; J7030

== ENCOUNTER 2017-08-23 12:06 | Inpatient (IN) | payer OTHER ==
[~2017-08-23] VITALS: Ht 154.9 cm; Wt 98.7 kg
[~2017-08-23 12:06] MED LIST changes: +LASIX40 MG PO; +XIFAXAN550 MG PO
[2017-08-23 13:04] LABS: HEMATOCRIT 31.2 % (36.0-46.0); HEMOGLOBIN 10.5 G/DL (11.9-15.5); MCH 29.1 PG (29.0-34.0); MCHC 33.7 G/DL (30.0-36.0); MCV 86.4 FL (83-99); RBC DIS.WIDTH-CV 15.9 % (11.8-14.6); RED BLOOD COUNT 3.61 M/uL (3.80-5.20); WHITE BLOOD COUNT 2.6 K/uL (4.1-10.2)
[2017-08-23 13:32] LABS: INTER. NORMALIZED RATIO 1.4
[2017-08-23 13:34] LABS: CHLORIDE 110 MEQ/L (99-109); POTASSIUM 4.2 MEQ/L (3.7-5.4); SODIUM 135 MEQ/L (136-147); TOTAL BILIRUBIN 1.5 MG/DL (0.0-1.0)
[2017-08-23 13:35] LABS: PTT 30.9 SEC (25-37)
[2017-08-23 13:39] LABS: ALKALINE PHOSPHATASE 97 IU/L (3-129); ALT (GPT) 11 IU/L (3-49); AST (GOT) 21 IU/L (2-34); CREATININE 0.6 MG/DL (0.6-1.3); GFR ESTIMATE (CALCULATED) > 59 mL/min/; GLUCOSE 135 mg/dL (70-99); LIPASE 46 U/L (1.0-51.0); TOTAL PROTEIN 5.9 G/DL (6.4-8.3); UREA NITROGEN (BUN) 9 mg/dL (9-23)
[2017-08-23 13:46] LABS: IMM.PLATELET FRACTION 1.6 (1-7); PLATELET COUNT 45 K/uL (156-360)
[2017-08-23 14:20] LABS: APPEARANCE CLOUDY ((CLEAR)); BILIRUBIN NEGATIVE; BLOOD MODERATE; COLOR YELLOW ((YELLOW)); GLUCOSE (STRIP) NEGATIVE; KETONES NEGATIVE; LEUKOCYTES LARGE; NITRITE NEGATIVE; PROTEIN (STRIP) NEGATIVE; SPECIFIC GRAVITY 1.006 (1.000-1.030); UROBILINOGEN 0.2 MG/DL (0.2-1.0)
[2017-08-23 14:36] LABS: BACTERIA 1+ /HPF; EPITHELIAL CELLS 2+ /HPF; MUCUS NONE SEEN /LPF; UCUL ADDED? YES; WHITE BLOOD CELLS 15-20 /HPF (0-5)
[2017-08-23] MEDS ORDERED: SPIRONOLACTONE100 MG PO (16:03)
[2017-08-23] MEDS ORDERED: COLACE100 MG PO (16:03)
[2017-08-23 17:11] VITALS: BP 105/68
[2017-08-23 18:59] VITALS: BP 102/56
[2017-08-23 22:30] VITALS: BP 97/57
[2017-08-24 02:45] VITALS: BP 95/51
[2017-08-24 06:41] LABS: HEMATOCRIT 31.3 % (36.0-46.0); HEMOGLOBIN 10.3 G/DL (11.9-15.5); MCH 28.7 PG (29.0-34.0); MCHC 32.9 G/DL (30.0-36.0); MCV 87.2 FL (83-99); RBC DIS.WIDTH-CV 16.2 % (11.8-14.6); RBC DIS.WIDTH-SD 51.8 % (39-53); RED BLOOD COUNT 3.59 M/uL (3.80-5.20); WHITE BLOOD COUNT 2.6 K/uL (4.1-10.2)
[2017-08-24 07:00] VITALS: BP 112/59
[2017-08-24 07:17] LABS: ALBUMIN 2.8 G/DL (3.2-4.8); ALKALINE PHOSPHATASE 77 IU/L (3-129); ALT (GPT) 10 IU/L (3-49); AST (GOT) 20 IU/L (2-34); CHLORIDE 107 MEQ/L (99-109); CREATININE 0.7 MG/DL (0.6-1.3); GFR ESTIMATE (CALCULATED) > 59 mL/min/; GLUCOSE 115 mg/dL (70-99); POTASSIUM 4.1 MEQ/L (3.7-5.4); SODIUM 136 MEQ/L (136-147); TOTAL BILIRUBIN 1.6 MG/DL (0.0-1.0); TOTAL PROTEIN 5.4 G/DL (6.4-8.3); UREA NITROGEN (BUN) 8 mg/dL (9-23)
[2017-08-24 07:46] LABS: IMM.PLATELET FRACTION 2.4 (1-7); PLAT.SUFFICIENCY VERY DECREASED; PLATELET COUNT 41 K/uL (156-360)
[2017-08-24 11:25] VITALS: BP 94/52
[2017-08-24 15:30] VITALS: BP 102/57
[2017-08-24 19:26] VITALS: BP 104/57
[2017-08-24 23:18] VITALS: BP 106/54
[2017-08-25 06:38] LABS: ALBUMIN 2.6 G/DL (3.2-4.8); ALKALINE PHOSPHATASE 87 IU/L (3-129); ALT (GPT) 10 IU/L (3-49); AST (GOT) 21 IU/L (2-34); CHLORIDE 105 MEQ/L (99-109); CREATININE 0.6 MG/DL (0.6-1.3); GFR ESTIMATE (CALCULATED) > 59 mL/min/; GLUCOSE 123 mg/dL (70-99); POTASSIUM 3.4 MEQ/L (3.7-5.4); SODIUM 132 MEQ/L (136-147); TOTAL BILIRUBIN 1.4 MG/DL (0.0-1.0); TOTAL PROTEIN 5.2 G/DL (6.4-8.3); UREA NITROGEN (BUN) 9 mg/dL (9-23)
[2017-08-25 07:05] VITALS: BP 97/56
[2017-08-25 15:26] VITALS: BP 92/51
[2017-08-25 22:57] VITALS: BP 95/52
[2017-08-26 05:25] LABS: HEMATOCRIT 30.1 % (36.0-46.0); HEMOGLOBIN 9.9 G/DL (11.9-15.5); MCH 28.6 PG (29.0-34.0); MCHC 32.9 G/DL (30.0-36.0); RBC DIS.WIDTH-CV 15.8 % (11.8-14.6); RBC DIS.WIDTH-SD 49.7 % (39-53); RED BLOOD COUNT 3.46 M/uL (3.80-5.20); WHITE BLOOD COUNT 3.3 K/uL (4.1-10.2)
[2017-08-26 05:41] LABS: ALBUMIN 2.7 G/DL (3.2-4.8); CHLORIDE 109 MEQ/L (99-109); CREATININE 0.6 MG/DL (0.6-1.3); GFR ESTIMATE (CALCULATED) > 59 mL/min/; GLUCOSE 133 mg/dL (70-99); PHOSPHORUS 3.1 mg/dL (2.5-4.9); POTASSIUM 3.9 MEQ/L (3.7-5.4); SODIUM 134 MEQ/L (136-147); UREA NITROGEN (BUN) 8 mg/dL (9-23)
[2017-08-26 06:42] LABS: IMM.PLATELET FRACTION 2.8 (1-7); PLAT.SUFFICIENCY DECREASED; PLATELET COUNT 41 K/uL (156-360)
[2017-08-26 06:50] VITALS: BP 92/54
== END 2017-08-26 13:47 | disposition left against medical advice (07) | DRG 442 ==
LOC: EME 12:06 → ENRESERV 15:43 → 5EAST 15:43 → EDOF 15:43 → ENRESERV 16:12 → 5EAST 17:01
PROVIDERS: Internal Medicine; Internal Medicine Gastroenterology; Physician Assistant
DX: K72.90 Hepatic failure, unspecified without coma (principal); N39.0 Urinary tract infection, site not specified; D61.818 Other pancytopenia; Z68.41 Body mass index [BMI] 40.0-44.9, adult; K74.60 Unspecified cirrhosis of liver; E66.9 Obesity, unspecified; B96.20 Unspecified Escherichia coli [E. coli] as the cause of diseases classified elsewhere; G89.29 Other chronic pain; F41.9 Anxiety disorder, unspecified; F32.9 Major depressive disorder, single episode, unspecified; D69.6 Thrombocytopenia, unspecified; R27.8 Other lack of coordination; Z90.49 Acquired absence of other specified parts of digestive tract; Z79.899 Other long term (current) drug therapy; B19.20 Unspecified viral hepatitis C without hepatic coma; Z91.14 Patient's other noncompliance with medication regimen; J44.9 Chronic obstructive pulmonary disease, unspecified; Z53.21 Procedure and treatment not carried out due to patient leaving prior to being seen by health care provider; F17.200 Nicotine dependence, unspecified, uncomplicated
CPT/HCPCS: 36415; 71046; 74177; 80053; 80069; 81003; 82140; 82948; 83605; 83690; 85025; 85027; 85610; 85730; 87040; 87077; 87086; 87186; 99202; 99281; 99285; J0696